=== PATIENT | male | born 1955 | race Two or more races ===

== ENCOUNTER → 2019-06-02 | Outpatient (CLI) | payer MEDICARE, BC ==
[~2019-06-02] VITALS: Ht 179.1 cm; Wt 89.4 kg
[2019-06-02 12:40] LABS: Basophils # (auto) 0 uL; Basophils % (auto) 0.5 % (0.0-2.0); Eosinophils # (auto) 0.3 uL; Eosinophils % (auto) 5.5 % (0.0-7.0); Hematocrit 43.9 % (41.0-53.0); Hemoglobin 15.2 g/dL (13.5-17.5); Lymphocytes # (auto) 1.7 uL; Lymphocytes % (auto) 35.7 % (10.0-50.0); Mean Corpuscular Hemoglobin 31.6 pg (28.0-32.0); Mean Corpuscular Hgb Conc. 34.5 g/dL (32.0-36.0); Mean Corpuscular Volume 91.4 fL (80.0-100.0); Monocytes # (auto) 0.3 uL; Monocytes % (auto) 6.6 % (0.0-12.0); Neutrophils # (auto) 2.5 uL; Neutrophils % (auto) 51.7 % (37.0-80.0); Nucleated Red Blood Cells % 0.1 %; Platelet Count (auto) 156 10^3/uL (140-450); Red Cell Distribution Width 12.9 % (11.8-14.3); White Blood Cell 4.9 10^3/uL (4.4-10.8)
[2019-06-02 12:42] LABS: Bilirubin, Total 0.7 mg/dL (0.2-1.0); Calcium 9.4 mg/dL (8.5-10.1); Free T4 (Free Thyroxine) 1.05 ng/dL (0.89-1.76); Magnesium 2.4 mg/dL (1.6-2.6); Prostate Specific Antigen 0.6 ng/mL (0.0-4.0); Total Protein 7.6 g/dL (6.4-8.2)
== END | disposition home or self-care (01) ==
LOC: Rad HDHVI 09:37
PROVIDERS: ATTEND Internal Medicine Cardiovascular Disease
DX: I07.1 Rheumatic tricuspid insufficiency (principal); E03.9 Hypothyroidism, unspecified; K90.9 Intestinal malabsorption, unspecified; C61 Malignant neoplasm of prostate; D51.9 Vitamin B12 deficiency anemia, unspecified; R07.9 Chest pain, unspecified; I10 Essential (primary) hypertension; E78.00 Pure hypercholesterolemia, unspecified; Z79.899 Other long term (current) drug therapy
CPT/HCPCS: 36415; 78452; 80053; 80061; 82306; 82607; 83036; 83735; 84153; 84439; 84443; 85025; 93017; 93306; 96374; A9500

== ENCOUNTER 2020-09-02 11:01 | Outpatient (CLI) | payer MEDICARE, OTHER ==
[2020-09-02] MEDS ORDERED: CHOL20007 PO (19:10)
[2020-09-02] MEDS ORDERED: CLOP75TA28 PO (19:10)
[2020-09-02] MEDS ORDERED: LOSA-69 PO (19:10)
[2020-09-03] MEDS ORDERED: ATO40T PO (17:42)
[2020-09-03] MEDS ORDERED: ASPI-231 PO (17:42)
== END 2020-09-02 11:20 | disposition home or self-care (01) ==
LOC: LAB 11:01 → EDSTATUS 09-07 15:25
PROVIDERS: ATTEND Internal Medicine Cardiovascular Disease
DX: Z01.818 Encounter for other preprocedural examination (principal); I25.10 Atherosclerotic heart disease of native coronary artery without angina pectoris; Z20.822 Contact with and (suspected) exposure to COVID-19

== ENCOUNTER → 2020-09-15 | Outpatient (CLI) | payer MEDICARE, OTHER ==
[~2020-09-15] VITALS: Ht 177.8 cm; Wt 88.9 kg
[~2020-09-15] MED LIST: ASPI-231 PO; ATO40T PO; CHOL20007 PO; CLOP75TA28 PO; LOSA-69 PO
== END | disposition home or self-care (01) ==
LOC: Rad HDHVI 08:18
PROVIDERS: ATTEND Internal Medicine Cardiovascular Disease
DX: I10 Essential (primary) hypertension (principal); E78.00 Pure hypercholesterolemia, unspecified; E11.9 Type 2 diabetes mellitus without complications; R07.89 Other chest pain; Z82.49 Family history of ischemic heart disease and other diseases of the circulatory system
CPT/HCPCS: 78452; 93017; 93306; 96374; A9500